=== PATIENT | female | born 1960 | race African-American/Black ===

== ENCOUNTER 2017-03-12 12:26 | Emergency (ER) | payer OTHER ==
[2017-03-12 13:09] LABS: Bilirubin Negative (Negative); Blood, Urine Negative (Negative); Glucose, Urine (Dipstick) Negative (Negative); Ketone, Urine Negative (Negative); Nitrite Negative (Negative); Protein, Urine (Dipstick) Negative (Neg-Trace); Urobilinogen 0.2 mg/dL (0.2-1.0)
[2017-03-12 13:20] LABS: Amphetamine Not Detected (NotDetected); Methadone Not Detected (NotDetected); Methamphetamine Not Detected (NotDetected)
[2017-03-12 14:08] LABS: Hematocrit 46.7 % (36.0-47.0); Mean Platelet Volume 7.1 fL (7.4-10.4); Red Blood Cell (RBC) Count 4.97 mill/uL (4.20-5.40)
[2017-03-12 14:21] LABS: ALT (SGPT) 12 U/L (8-55); AST (SGOT) 15 U/L (5-34); Alkaline Phosphatase 93 U/L (40-150); Anion Gap 13 mmol/L (10-20); BUN (Urea Nitrogen) 9 mg/dL (9.8-20.1); Bilirubin, Total 0.2 mg/dL (0.2-1.2); Calc. Creatinine Clearance 0 mL/min (70-130); Calcium 10.2 mg/dL (7.8-10.44); Carbon Dioxide 28 mmol/L (22-29); Chloride 107 mmol/L (98-107); Estimated GFR-MDRD 79; Globulin 3.8 g/dL (2.4-3.5)
[2017-03-12 14:30] LABS: Neutrophil 25 % (42-75); Reactive Lymphocytes 2 % (0-10)
--- NOTE | 2017-03-12 15:09 | RAD ---
PORTABLE AP CHEST: Date: 03-12-17 History: Dizziness, weakness. Comparison: 11-10-16 FINDINGS: The cardiac silhouette and pulmonary vasculature are within normal limits. Lungs remain clear. There are ankle screws again overlying the right humeral head. There has been no interval change from jesus or study. IMPRESSION: No acute cardiopulmonary process. POS: [facility]
--- NOTE | 2017-03-12 15:45 | CT ---
CT BRAIN NONCONTRAST: HISTORY: 56-year-old female with headache and generalized weakness. FINDINGS: There is no midline shift or any other mass effect. There is no evidence of acute intracranial hemo rrhage, large cortical infarct, obstructive hydrocephalus, or extraaxial fluid collection. The calv arium is intact. IMPRESSION: No acute intracranial findings. damien [] POS: [facility]
[2017-03-12 15:58] LABS: PTT 29.6 SEC (22.9-36.1); Prothrombin Time 13.3 SEC (12.0-14.7)
[2017-03-12 16:05] LABS: Troponin I Less than 0.010 ng/mL (< 0.028)
[2017-03-12] MEDS ORDERED: Acetaminophen 500 MG TAB ONE (18:06)
== END 2017-03-12 18:10 | disposition home or self-care (01) ==
LOC: ERS 12:26
DX: R53.1 Weakness (principal); M79.7 Fibromyalgia; E78.00 Pure hypercholesterolemia, unspecified; I10 Essential (primary) hypertension; F32.9 Major depressive disorder, single episode, unspecified; F17.210 Nicotine dependence, cigarettes, uncomplicated; Z79.82 Long term (current) use of aspirin; Z79.899 Other long term (current) drug therapy; Z86.73 Personal history of transient ischemic attack (TIA), and cerebral infarction without residual deficits
CPT/HCPCS: 36415; 70450; 71010; 80053; 80306; 81003; 82550; 82553; 84484; 85025; 85610; 85730; 93005

== ENCOUNTER 2017-04-15 07:48 | Outpatient (CLI) | payer OTHER ==
--- NOTE | 2017-04-15 11:25 | MRI ---
LUMBAR SPINE MRI WITHOUT IV CONTRAST: Date: 04/15/17 HISTORY: 56-year-old female with lumbar spondylosis with myelopathy, bilateral leg as well as bilateral neck p ain for several years. TECHNIQUE: Multiplanar, multisequence MRI examination of the lumbar spine is performed. FINDINGS: Conus medullaris region is unremarkable, terminating at L1. The L1-L2 disc demonstrates mild disc desiccation change and ligament and facet hypertrophic changes, but no canal or foraminal stenosis. At L2-L3, there is some primarily left posterolateral bulging of the disc without significant central canal or lateral recess stenosis, but with some mild to moderate left foraminal stenosis. At L3-L4, there is extensive disc bulging resulting in severe lateral recess and foraminal stenosis, as well as extensive facet arthrosis with fluid within both facet joints, worse on the right side. Se nereida bilateral foraminal stenosis. At L4-L5, there is severe disc bulging with moderate central canal and lateral recess stenosis, and b ilateral foraminal stenosis. At L5-S1, there are some disc desiccation changes with a small central annular fissure and mild bilat eral foraminal stenosis. IMPRESSION: Central canal, lateral recess, and foraminal stenosis most marked at L4-L5 and L3-L4. POS: [facility]
--- NOTE | 2017-04-15 11:47 | MRI ---
MRI CERVICAL SPINE WITHOUT IV CONTRAST: Date: 04/15/17 HISTORY: Bilateral leg and neck pain for 2 years. FINDINGS: Visualized base of the brain has a normal MRI appearance. Cervicomedullary junction has a normal MRI appearance. Normal signal intensity is demonstrated in the bone marrow. There are scattered degenerative changes seen within the cervical spine. C2-3 Level: There is small central disc protrusion narrowing the ventral subarachnoid space. Neural foramina are widely patent. C3-4 Level: There is loss of intervertebral disc height. There is mild broad based disc bulge with central disc p rotrusion. This narrows the ventral subarachnoid space. Neural foramina are patent. C4-5 Level: There is a mild broad based disc osteophyte complex with central disc protrusion. The central disc pr otrusion does contact the central aspect of the spinal cord resulting in slight flattening, but there is normal signal intensity in the spinal cord at this level. There is uncinate process hypertrophy a t this level. Each neural foramen appears patent. C5-6 Level: There is mild loss of the intervertebral disc height. There is a broad based disc osteophyte complex with tiny central disc protrusion. This does result in flattening of the anterior aspect of the spina l cord, but there is normal signal intensity in the spinal cord at this level. Neural foramina do carlos ear patent. C6-7 Level: There is a mild broad based disc osteophyte complex resulting in mild effacement of the ventral subar achnoid space. Neural foramina are patent. C7-T1 Level: There is mild broad based disc osteophyte complex, but there is no significant narrowing of the centr al spinal canal, and the neural foramina are patent. T1-2, T2-3, T3-4, and T4-5 Levels: There are mild broad based disc osteophyte complexes at these levels which narrows the ventral subara chnoid space. Axial imaging was not obtained through these levels, but there is at least mild right-s ided neural foraminal narrowing at the T2-3 level. IMPRESSION: Multilevel disc degenerative changes involving the cervical, as well as upper thoracic spine as descr ibed above. POS: [facility]
== END 2017-04-15 07:49 | disposition home or self-care (01) ==
LOC: MRI 07:48
PROVIDERS: ATTEND Neurological Surgery
DX: M47.16 Other spondylosis with myelopathy, lumbar region (principal); M47.12 Other spondylosis with myelopathy, cervical region; M47.14 Other spondylosis with myelopathy, thoracic region; M48.061 Spinal stenosis, lumbar region without neurogenic claudication
CPT/HCPCS: 72141; 72148

== ENCOUNTER 2017-06-05 17:16 | Emergency (ER) | payer OTHER ==
[2017-06-05 18:18] LABS: Hemoglobin 13.6 g/dL (12.0-16.0); Mean Corpuscular HGB CONC 33.3 g/dL (32.0-36.0); Mean Corpuscular Hemoglobin 31.5 pg (27.0-31.0); Mean Corpuscular Volume 94.6 fl (81.0-99.0); Mean Platelet Volume 7.1 fL (7.4-10.4); Platelet Count 275 thou/uL (130-400); RBC Distribution Width 13.2 % (11.5-14.5); Red Blood Cell (RBC) Count 4.32 mill/uL (4.20-5.40); White Blood Cell (WBC) Count 8.5 thou/uL (4.8-10.8)
[2017-06-05 18:19] LABS: ALT (SGPT) 9 U/L (8-55); AST (SGOT) 11 U/L (5-34); Albumin 3.8 g/dL (3.5-5.0); Alkaline Phosphatase 93 U/L (40-150); Anion Gap 12 mmol/L (10-20); BUN (Urea Nitrogen) 11 mg/dL (9.8-20.1); Bilirubin, Total Less than 0.2 mg/dL (0.2-1.2); CK (CPK) 136 U/L (29-168); Calc. Creatinine Clearance 0 mL/min (70-130); Calcium 9.3 mg/dL (7.8-10.44); Carbon Dioxide 22 mmol/L (22-29); Chloride 110 mmol/L (98-107); Estimated GFR-MDRD 79; Globulin 3.3 g/dL (2.4-3.5); Glucose 111 mg/dL (70-105); Lipase 28 U/L (8-78); Potassium 3.7 mmol/L (3.5-5.1); Protein, Total 7.1 g/dL (6.0-8.3); Sodium 140 mmol/L (136-145)
[2017-06-05 18:21] LABS: CKMB 1.1 ng/mL (0-6.6); Troponin I Less than 0.010 ng/mL (< 0.028)
--- NOTE | 2017-06-05 18:31 | RAD ---
PORTABLE CHEST ONE VIEW: Date: 06-05-17 Time: 5:49 p.m. History: Chest pain. FINDINGS: Comparison is made with exam of 03-12-17. The heart size is normal. No focal areas of consolidation, pneumothorax or pleural effusions are seen . IMPRESSION: No radiographic evidence of acute cardiopulmonary process. POS: [facility]
[2017-06-05 18:39] LABS: Eosinophils 1 % (0-10); Hemoglobin C Crystals MODERATE (None Seen); Lymphocytes 46 % (21-51); MDiff Complete? YES; Monocytes 6 % (0-10); Neutrophil 43 % (42-75); PLT Morphology Comment Appears Adequate; RBC Morphology Normal; Reactive Lymphocytes 3 % (0-10); Rouleaux Formation SLIGHT = 1-5 cells (100X) (None Seen)
[2017-06-05] MEDS ORDERED: Morphine 4 MG/ML Carpuject ONE ×2 (19:48→20:24)
[2017-06-05] MEDS ORDERED: Nitroglycerin 2% Ointment 1 INCH/1 GM Packet ONE (19:48)
[2017-06-05 21:39] LABS: Troponin I Less than 0.010 ng/mL (< 0.028)
[2017-06-05] MEDS ORDERED: Ketorolac Tromethamine 30 MG/ML VIAL ONE (21:56)
[2017-06-05] MEDS ORDERED: Diazepam 5 MG TAB ONE (21:57)
== END 2017-06-05 22:50 | disposition home or self-care (01) ==
LOC: ERS 17:16
DX: R07.89 Other chest pain (principal); I25.2 Old myocardial infarction; I10 Essential (primary) hypertension; E78.00 Pure hypercholesterolemia, unspecified; F32.9 Major depressive disorder, single episode, unspecified; F17.210 Nicotine dependence, cigarettes, uncomplicated; Z79.899 Other long term (current) drug therapy; Z86.73 Personal history of transient ischemic attack (TIA), and cerebral infarction without residual deficits; Z79.82 Long term (current) use of aspirin
CPT/HCPCS: 36415; 71045; 80053; 82550; 82553; 83690; 84484; 85025; 85379; 93005; 96374; 96375; 99406; J1885; J2270

== ENCOUNTER 2017-07-04 18:45 | Emergency (ER) | payer OTHER ==
[2017-07-04 19:34] LABS: #Basophils 0.1 thou/uL (0.0-0.2); #Eosinphils 0.4 thou/uL (0.0-0.7); #Lymphocytes 3.6 thou/uL (1.20-3.40); #Monocytes 0.3 thou/uL (0.11-0.59); #Neutrophils 3.6 thou/uL (1.40-6.50); %Basophils 0.9 % (0.0-1.0); %Eosinophils 5.3 % (0.0-10.0); %Monocytes 3.9 % (0.0-10.0); %Neutrophils 44.8 % (42.0-75.0); Hemoglobin 14.5 g/dL (12.0-16.0); Mean Corpuscular HGB CONC 33.5 g/dL (32.0-36.0); Mean Corpuscular Hemoglobin 31.5 pg (27.0-31.0); Mean Corpuscular Volume 94.1 fl (81.0-99.0); Mean Platelet Volume 7.4 fL (7.4-10.4); Platelet Count 262 thou/uL (130-400); RBC Distribution Width 12.7 % (11.5-14.5); White Blood Cell (WBC) Count 8.1 thou/uL (4.8-10.8)
[2017-07-04 19:55] LABS: ALT (SGPT) 11 U/L (8-55); AST (SGOT) 15 U/L (5-34); Albumin 3.7 g/dL (3.5-5.0); Alkaline Phosphatase 90 U/L (40-150); Anion Gap 13 mmol/L (10-20); BUN (Urea Nitrogen) 12 mg/dL (9.8-20.1); Bilirubin, Total 0.2 mg/dL (0.2-1.2); Calc. Creatinine Clearance 0 mL/min (70-130); Calcium 9.3 mg/dL (7.8-10.44); Carbon Dioxide 23 mmol/L (22-29); Chloride 110 mmol/L (98-107); Estimated GFR-MDRD 55; Globulin 3.3 g/dL (2.4-3.5); Glucose 116 mg/dL (70-105); Potassium 3.9 mmol/L (3.5-5.1); Sodium 142 mmol/L (136-145)
[2017-07-04 20:00] LABS: CKMB 0.7 ng/mL (0-6.6); Troponin I 0.015 ng/mL (< 0.028)
[2017-07-04 20:13] LABS: Bilirubin Negative (Negative); Blood, Urine Negative (Negative); Clarity CLEAR (Clear); Glucose, Urine (Dipstick) Negative (Negative); Leukocyte Negative (Negative); Nitrite Negative (Negative); Protein, Urine (Dipstick) Negative (Neg-Trace); Specific Gravity, Urine 1.017 (1.002-1.036)
--- NOTE | 2017-07-04 20:28 | CT ---
CT HEAD WITHOUT CONTRAST 07/04/17 Multiple axial tomograms obtained through the head without IV enhancement. HISTORY: Syncope. Ventricles have normal size and position. No mass, hemorrhage or infarct identified. Sinuses and mast oids are well aerated. IMPRESSION: No acute abnormality. POS: [facility]
[2017-07-04] MEDS ORDERED: Meclizine HCl 25 MG TAB ONE (22:34)
== END 2017-07-04 22:42 | disposition home or self-care (01) ==
LOC: ERS 18:45
DX: R55 Syncope and collapse (principal); R42 Dizziness and giddiness; I25.2 Old myocardial infarction; E78.00 Pure hypercholesterolemia, unspecified; I10 Essential (primary) hypertension; F41.9 Anxiety disorder, unspecified; F32.9 Major depressive disorder, single episode, unspecified; F17.210 Nicotine dependence, cigarettes, uncomplicated; Z79.82 Long term (current) use of aspirin; Z79.899 Other long term (current) drug therapy; Z71.6 Tobacco abuse counseling; Z86.73 Personal history of transient ischemic attack (TIA), and cerebral infarction without residual deficits
CPT/HCPCS: 36415; 70450; 80053; 81003; 82553; 84484; 85025; 93005; 96360; 99406

== ENCOUNTER 2017-12-24 20:04 | Emergency (ER) | payer OTHER ==
[~2017-12-24 20:04] MED LIST: ISOVUE-370 76%-LOCM 1 ML ONE
[2017-12-24 20:57] LABS: Bilirubin Negative (Negative); Blood, Urine Negative (Negative); Clarity CLEAR (Clear); Glucose, Urine (Dipstick) Negative (Negative); Leukocyte Negative (Negative); Nitrite Negative (Negative); Protein, Urine (Dipstick) Negative (Neg-Trace); Specific Gravity, Urine 1.013 (1.002-1.036); pH, Urine 6.5 (5.0-9.0)
[2017-12-24 21:18] LABS: ALT (SGPT) 10 U/L (8-55); AST (SGOT) 12 U/L (5-34); Alkaline Phosphatase 94 U/L (40-150); Anion Gap 13 mmol/L (10-20); BUN (Urea Nitrogen) 14 mg/dL (9.8-20.1); Bilirubin, Total 0.2 mg/dL (0.2-1.2); Calc. Creatinine Clearance 0 mL/min (70-130); Calcium 9.4 mg/dL (7.8-10.44); Carbon Dioxide 24 mmol/L (22-29); Chloride 105 mmol/L (98-107); Estimated GFR-MDRD 80; Globulin 3.4 g/dL (2.4-3.5); Glucose 97 mg/dL (70-105); Lipase 33 U/L (8-78); Potassium 3.2 mmol/L (3.5-5.1); Protein, Total 7.4 g/dL (6.0-8.3); Sodium 139 mmol/L (136-145)
[2017-12-24 21:27] LABS: Mean Corpuscular HGB CONC 34.6 g/dL (32.0-36.0); Mean Corpuscular Hemoglobin 31.3 pg (27.0-31.0); Mean Corpuscular Volume 90.6 fL (78.0-98.0); Mean Platelet Volume 7.4 fL (7.4-10.4); Platelet Count 265 thou/uL (130-400); RBC Distribution Width 12.7 % (11.5-14.5); Red Blood Cell (RBC) Count 4.77 mill/uL (4.20-5.40); White Blood Cell (WBC) Count 6.6 thou/uL (4.8-10.8)
[2017-12-24 21:35] LABS: Lymphocytes 49 % (21-51); MDiff Complete? YES; Monocytes 3 % (0-10); Neutrophil 48 % (42-75); PLT Morphology Comment Appears Adequate; RBC Morphology Normal
--- NOTE | 2017-12-24 22:18 | CT ---
CT ABDOMEN AND PELVIS WITH IV CONTRAST: 12/24/17 Abdominal pain. FINDINGS: Comparison made with exam of 08/29/27. Nonspecific increased markings in the visualized lower lung zones are again seen. The small low densi ty lesions in the dome of the right lobe of the liver is unchanged. The gallbladder is contracted. No calcified gallstones are seen. The common bile duct stable measuring up to 9 mm with normal caliber distally in the pancreas. No intrahepatic biliary ductal dilatation is seen. The liver, spleen, pancreas, adrenal glands, and right kidney are normal. A tiny cyst is noted in the left kidney. No free air, free fluid or lymphadenopathy is seen in the abdomen or pelvis. The uterus is present. A normal appearing appendix is redemonstrated. There are degenerative changes in the spine. There are vascular calcifications without evidence of aneurysmal dilatation of the abdominal aorta. IMPRESSION: Stable exam. No acute process. POS: [facility]
[2017-12-24] MEDS ORDERED: Ondansetron HCl/PF 4 MG/2 ML Vial ONE (22:23)
[2017-12-24 22:38] LABS: Pregnancy Test - Urine (BHCG) Negative (Negative); Pregu Control Background? CLEAR/WHITE (CLR/WHITE); Pregu Control Bar Appear? YES (CONTROL BAR); Specific Gravity 1.013 (1.002-1.036)
== END 2017-12-24 23:35 | disposition home or self-care (01) ==
LOC: ERS 20:04
DX: R10.9 Unspecified abdominal pain (principal); F41.9 Anxiety disorder, unspecified; F31.9 Bipolar disorder, unspecified; F17.210 Nicotine dependence, cigarettes, uncomplicated; I10 Essential (primary) hypertension; M06.9 Rheumatoid arthritis, unspecified; E78.5 Hyperlipidemia, unspecified; Z86.73 Personal history of transient ischemic attack (TIA), and cerebral infarction without residual deficits; Z79.899 Other long term (current) drug therapy; Z79.891 Long term (current) use of opiate analgesic; Z79.82 Long term (current) use of aspirin
CPT/HCPCS: 74177; 80053; 81003; 81025; 83690; 85025; 96374; 96375; J2270; J2405

== ENCOUNTER 2018-03-27 12:11 | Emergency (ER) | payer OTHER ==
[2018-03-27] MEDS ORDERED: Ketorolac Tromethamine 30 MG/ML VIAL ONE (14:01)
[2018-03-27] MEDS ORDERED: traMADol HCl 50 MG TAB ONE (14:02)
--- NOTE | 2018-03-27 14:12 | RAD ---
LUMBOSACRAL SPINE: Date: 03/27/18 COMPARISON: None. HISTORY: Low back pain that has been worse since Saturday. FINDINGS: Three views lumbosacral spine show normal height and alignment of the vertebral bodies and interverte bral disc without fracture. Posterior facet arthrosis is seen in the lower lumbosacral spine. Vascula r calcifications are seen in the aorta. IMPRESSION: Degenerative changes of the lumbar spine without acute osseous abnormality. POS: [facility]
== END 2018-03-27 14:16 | disposition home or self-care (01) ==
LOC: ERS 12:11
DX: M54.5 Low back pain (principal); E78.5 Hyperlipidemia, unspecified; I10 Essential (primary) hypertension; Z86.73 Personal history of transient ischemic attack (TIA), and cerebral infarction without residual deficits; F41.9 Anxiety disorder, unspecified; F31.9 Bipolar disorder, unspecified; F17.210 Nicotine dependence, cigarettes, uncomplicated; Z79.899 Other long term (current) drug therapy; Z79.82 Long term (current) use of aspirin
CPT/HCPCS: 72100; 96372; J1885

== ENCOUNTER 2018-04-03 12:49 | Outpatient (CLI) | payer OTHER ==
--- NOTE | 2018-04-03 15:06 | MRI ---
LUMBAR SPINE MRI WITHOUT IV CONTRAST: Date: 04/03/18 HISTORY: 57-year-old female with history of lumbar disc degeneration, M51.36, bilateral leg pain and weakness for 1 week. FINDINGS: There is a very tiny T2 hyperintensity in the posterior aspect of the left kidney, statistically a ti ny cyst. Conus medullaris region is unremarkable, terminating at L1-L2. The L1-L2, L2-L3, and L3-L4 discs demonstrate no significant central canal stenosis. Mild bilateral l ateral recess stenosis and bilateral foraminal stenosis at L2-3 level. At L3-L4, there is extensive diffuse disc bulging with ligament and facet hypertrophic changes, with mild central canal and moderate bilateral recess stenosis, and moderate to severe bilateral foraminal stenosis, associated with a central annular fissure. At L4-L5, there is a very large central extruded disc herniation with severe central canal and latera l recess stenosis, and bilateral foraminal stenosis. The amount of stenosis appears to be somewhat mo re marked than on 04/15/17 with increase in size of the posterior disc focal protrusion with more cau patsy extension than on the prior study. At L5-S1, there is some generalized disc bulging with ligament and facet hypertrophic changes, with m ild thinning of the lateral recesses and moderate left and mild right foraminal stenosis. Very mild T ype I end plate changes at L4-L5. IMPRESSION: Multilevel variable severity canal, lateral recess, and foraminal stenosis, most marked at L5-S1, wit h some progressive stenosis and disc protrusion, enlarged when compared to the prior study. POS: [facility]
== END 2018-04-03 12:50 | disposition home or self-care (01) ==
LOC: TBSIIMAG 12:49
PROVIDERS: ATTEND Neurological Surgery
DX: M51.36 Other intervertebral disc degeneration, lumbar region (principal); M51.26 Other intervertebral disc displacement, lumbar region; M48.07 Spinal stenosis, lumbosacral region; M99.83 Other biomechanical lesions of lumbar region
CPT/HCPCS: 72148

== ENCOUNTER 2018-04-22 10:30 | Inpatient (IN) | payer OTHER ==
[2018-04-22 11:14] VITALS: BMI 28.3
[2018-04-28] MEDS ORDERED: Sodium Chloride 0.9% 10 ML ONE (06:25)
[2018-04-28] MEDS ORDERED: Midazolam HCl 2 mg/2 ml Vial ONE (06:47)
[2018-04-28] MEDS ORDERED: Fentanyl 250 MCG/5 ML VIAL ONE (06:47)
[2018-04-28] MEDS ORDERED: Levofloxacin 500 mg/D5W 100 ml Premix Bag ONE (06:56)
[2018-04-28] MEDS ORDERED: Clindamycin/D5W 900 mg/50 ml Premix Bag ONE (06:56)
[2018-04-28] MEDS ORDERED: Ketorolac Tromethamine 30 MG/ML VIAL ONE (09:18)
[2018-04-28] MEDS ORDERED: Fentanyl 100 MCG/2 ML VIAL ONE ×3 (09:19→11:26)
[2018-04-28] MEDS ORDERED: Morphine 2 MG/ML SYRINGE ONE ×4 (12:15→13:51)
[2018-04-28] MEDS ORDERED: Lidocaine 1% PF 5 ML VIAL ONE (15:02)
[2018-04-28] MEDS ORDERED: Glycopyrrolate 0.2 MG/ML 5 ML SYRINGE ONE (15:02)
[2018-04-28] MEDS ORDERED: ePHEDrine/0.9% NaCl/PF SYRINGE 50 mg/10 ml ONE (15:02)
[2018-04-28] MEDS ORDERED: PHENYLEPHRINE-NS 100 MCG/ML 10 ML SYRINGE ONE (15:02)
[2018-04-28] MEDS ORDERED: PROPOFOL 200 MG/20 ML VIAL ONE (15:02)
[2018-04-28] MEDS ORDERED: Ondansetron PF 4 MG/2 ML Vial ONE (15:02)
[2018-04-28] MEDS ORDERED: diphenhydrAMINE 50 MG/ML VIAL IVP PRN (15:18)
[2018-04-28] MEDS ORDERED: diphenhydrAMINE 25 MG CAP PO PRN (15:18)
[2018-04-28] MEDS ORDERED: Promethazine HCl 25 MG/ML VIAL IM PRN (15:18)
[2018-04-28] MEDS ORDERED: Morphine 4 MG/ML VIAL SLOW IVP PRN (15:18)
[2018-04-28] MEDS ORDERED: Milk Of Magnesia 30 ML UDCUP PO PRN (15:18)
[2018-04-28] MEDS ORDERED: Promethazine 25 MG TAB PO PRN (15:18)
[2018-04-28] MEDS ORDERED: Ondansetron PF 4 MG/2 ML Vial IM PRN (15:18)
[2018-04-28] MEDS ORDERED: Mag-Al 1200 mg/1200 mg/30 ML UDCUP PO PRN (15:18)
[2018-04-28] MEDS ORDERED: traMADol HCl 50 MG TAB PO PRN ×2 (15:18)
[2018-04-28] MEDS: Sodium Chloride 0.9% 1,000 ML IV SCH ×2 (15:47→23:09)
[2018-04-28] MEDS: HYDROcodone/Acetaminophen 10/325 mg Tablet PO PRN ×2 (15:59→22:08)
[2018-04-28] MEDS: Clindamycin/D5W 900 MG in Premix Bag 1 BAG IVPB SCH ×2 (16:00→23:10)
[2018-04-28] MEDS: Atorvastatin Calcium 40 MG TAB PO SCH (20:11)
[2018-04-28] MEDS: Gabapentin 300 MG CAP PO SCH (20:11)
[2018-04-29] MEDS ORDERED: Sodium Chloride 0.9% 1,000 ML IV SCH (06:15)
[2018-04-29] MEDS: HYDROcodone/Acetaminophen 10/325 mg Tablet PO PRN ×2 (08:39→16:16)
[2018-04-29] MEDS: Gabapentin 300 MG CAP PO SCH ×3 (08:40→19:45)
[2018-04-29] MEDS ORDERED: Lisinopril 5 MG TAB PO SCH (09:00)
[2018-04-29] MEDS ORDERED: Furosemide 20 MG TAB PO SCH (09:00)
[2018-04-29] MEDS: tiZANidine HCl 4 MG TAB PO PRN ×2 (12:47→18:58)
[2018-04-29] MEDS: Sodium Chloride 0.9% 1,000 ML IV SCH (17:30)
[2018-04-29] MEDS: Atorvastatin Calcium 40 MG TAB PO SCH (19:45)
[2018-04-30] MEDS: HYDROcodone/Acetaminophen 10/325 mg Tablet PO PRN ×2 (03:36→07:19)
--- NOTE | 2018-04-30 05:20 | DIS ---
DATE OF ADMISSION: 04/28/2018 DATE OF DISCHARGE: 04/29/2018 HOSPITAL COURSE: The patient is a 57-year-old -[place] female, status post L3-L5 diskectomy and fusion for lumbar degenerative disk disease/lumbar spondylosis. Following the surgery, she was transitioned to the Med Surg Department, where her pain was well controlled with p.o. medications. She was tolerating regular diet, and voiding appropriately. She did have slight drop in her blood pressures to systolic of 90, however, this improved with switching her pain medications to tramadol. She was also treated with 1 L of normal saline bolus. She has otherwise been ambulatory in the department without any difficulty. I have visited the patient this morning at the bedside. She is awake and alert, in no acute distress. She is in 5/5 strength throughout. No focal motor weakness or reflex asymmetry. Her dressing is dry. We will plan to dismiss the patient to home. I have provided her with scripts for Corona, tramadol, clindamycin, and Zanaflex. We will plan to follow up with the patient in 2 weeks for recheck and x-rays. The patient has been provided discharge instructions. Job ID: [id number]
[2018-04-30] MEDS: Sodium Chloride 0.9% 1,000 ML IV SCH (07:36)
[2018-04-30 07:37] VITALS: BP 114/69; TEMP 98.8
--- NOTE | 2018-05-01 14:29 | OP ---
DATE OF PROCEDURE: 04/28/2018 FRET SAW OPERATOR: Hudson Wheeler PROCEDURE PERFORMED: L3-L4 and L4-L5 decompressive laminectomy, left L3-L4 and L4-L5 laminectomy, facetectomy, and foraminotomy, interbody arthrodesis and , local morselized autograft, demineralized bone matrix, posterolateral arthrodesis, pedicle screw instrumentation, L3-L4 and L4-L5. DESCRIPTION OF PROCEDURE: The patient was brought to the operating room and intubated. She was rolled in the prone position on gel-filled chest roll. Incision was made exposing L3-L5 and the level was confirmed by x-ray. We performed complete L5, complete L4, and L3 laminectomies and complete decompression of the neural elements. The pinhole leak in the dura was identified at the L4 level, which was repaired with the single 4-0 Prolene suture. This was later reinforced with the DuraSeal fibrin sealant. Left L4-L5 and left L3-L4 facetectomy and foraminotomy were performed and completed discectomies at each level. The discs themselves were debrided and removed and bony end plates decorticated for first arthrodesis at L3-L4 and L4-L5. Appropriate sized intravertebral biomechanical PEEK devices were brought into the field, filled with demineralized bone matrix, local morselized autograft and then placed securely at L3-L4 and L4-L5. Cortical screws were then placed at left L3, left L4, and left L5 using lateral fluoroscopic guidance. Rods were secured with pins and screws connected by nuts which after compression was applied were finally tightened. The wound was then extensively irrigated and maximum hemostasis was secured. Combination of demineralized bone matrix and local morselized autograft arthrodesis. Vancomycin power was applied and the wound was then closed in anatomic layers. Job ID: [id number]
== END 2018-04-30 07:50 | disposition home or self-care (01) | DRG 460 ==
LOC: SURG A 04-28 05:53
PROVIDERS: ADMIT Neurological Surgery; ATTEND Neurological Surgery
PROC: 0ST20ZZ Resection of Lumbar Vertebral Disc, Open Approach (ICD-10-PCS; principal; 2018-04-28)
PROC: 0SG10AJ Fusion of 2 or more Lumbar Vertebral Joints with Interbody Fusion Device, Posterior Approach, Anterior Column, Open Approach (ICD-10-PCS; 2018-04-28)
PROC: 01NB0ZZ Release Lumbar Nerve, Open Approach (ICD-10-PCS; 2018-04-28)
DX: M51.36 Other intervertebral disc degeneration, lumbar region (principal); M47.896 Other spondylosis, lumbar region
CPT/HCPCS: 76001; 90471; 90686; C1713; C1768; G0008; G8978-GP-CM; G8979-GP-CK; J1200; J1885; J1956; J2001; J2250; J2270; J2405; J2704; J3010; J3370; J3490

== ENCOUNTER 2018-04-22 10:48 | Outpatient (CLI) | payer OTHER ==
[2018-04-22 12:28] LABS: #Basophils 0.1 thou/uL (0.0-0.2); #Eosinphils 0.2 thou/uL (0.0-0.7); #Lymphocytes 3.1 thou/uL (1.20-3.40); #Monocytes 0.3 thou/uL (0.11-0.59); #Neutrophils 3.3 thou/uL (1.40-6.50); %Basophils 0.8 % (0.0-1.0); %Eosinophils 3.4 % (0.0-10.0); %Lymphocytes 44.6 % (21.0-51.0); %Monocytes 3.8 % (0.0-10.0); %Neutrophils 47.5 % (42.0-75.0); Hemoglobin 14.7 g/dL (12.0-16.0); Mean Corpuscular HGB CONC 34.3 g/dL (32.0-36.0); Mean Corpuscular Hemoglobin 31.6 pg (27.0-31.0); Mean Platelet Volume 7.4 fL (7.4-10.4); Platelet Count 284 thou/uL (130-400); RBC Distribution Width 12.7 % (11.5-14.5); Red Blood Cell (RBC) Count 4.66 mill/uL (4.20-5.40); White Blood Cell (WBC) Count 6.9 thou/uL (4.8-10.8)
[2018-04-22 12:50] LABS: Anion Gap 13 mmol/L (10-20); BUN (Urea Nitrogen) 10 mg/dL (9.8-20.1); Calc. Creatinine Clearance 0 mL/min (70-130); Carbon Dioxide 27 mmol/L (22-29); Chloride 107 mmol/L (98-107); Estimated GFR-MDRD 83; Glucose 90 mg/dL (70-105); Potassium 3.8 mmol/L (3.5-5.1); Sodium 143 mmol/L (136-145)
== END 2018-04-22 10:49 | disposition home or self-care (01) ==
LOC: LABBT 10:48
PROVIDERS: ATTEND Neurological Surgery
DX: Z01.818 Encounter for other preprocedural examination (principal); M51.36 Other intervertebral disc degeneration, lumbar region
CPT/HCPCS: 80048; 85025; 93005; 93010

== ENCOUNTER 2018-05-11 20:59 | Emergency (ER) | payer OTHER ==
[2018-05-11] MEDS ORDERED: Lorazepam 2 MG/ML VIAL ONE (22:40)
[2018-05-11] MEDS ORDERED: Fentanyl 100 MCG/2 ML VIAL ONE (22:40)
[2018-05-11 23:10] LABS: #Basophils 0.1 thou/uL (0.0-0.2); #Eosinphils 0.2 thou/uL (0.0-0.7); #Monocytes 0.6 thou/uL (0.11-0.59); #Neutrophils 5.7 thou/uL (1.40-6.50); %Basophils 0.8 % (0.0-1.0); %Eosinophils 2.2 % (0.0-10.0); %Lymphocytes 31.2 % (21.0-51.0); %Neutrophils 59.8 % (42.0-75.0); Anion Gap 15 mmol/L (10-20); BUN (Urea Nitrogen) 11 mg/dL (9.8-20.1); Calc. Creatinine Clearance 0 mL/min (70-130); Calcium 9.7 mg/dL (7.8-10.44); Carbon Dioxide 23 mmol/L (22-29); Chloride 104 mmol/L (98-107); Estimated GFR-MDRD 86; Glucose 111 mg/dL (70-105); Hemoglobin 12.3 g/dL (12.0-16.0); Mean Corpuscular HGB CONC 36.3 g/dL (32.0-36.0); Mean Corpuscular Hemoglobin 33.4 pg (27.0-31.0); Mean Corpuscular Volume 92.1 fL (78.0-98.0); Mean Platelet Volume 6.5 fL (7.4-10.4); Platelet Count 508 thou/uL (130-400); Red Blood Cell (RBC) Count 3.66 mill/uL (4.20-5.40); Sodium 138 mmol/L (136-145); White Blood Cell (WBC) Count 9.5 thou/uL (4.8-10.8)
== END 2018-05-12 00:06 | disposition home or self-care (01) ==
LOC: ERS 20:59
DX: G89.18 Other acute postprocedural pain (principal); M54.9 Dorsalgia, unspecified; E78.5 Hyperlipidemia, unspecified; I10 Essential (primary) hypertension; M06.9 Rheumatoid arthritis, unspecified; Z86.73 Personal history of transient ischemic attack (TIA), and cerebral infarction without residual deficits; F41.9 Anxiety disorder, unspecified; F17.210 Nicotine dependence, cigarettes, uncomplicated
CPT/HCPCS: 36415; 80048; 85025; 96374; 96375; J2060; J3010

== ENCOUNTER 2018-05-13 16:03 | Outpatient (CLI) | payer OTHER ==
--- NOTE | 2018-05-13 17:28 | RAD ---
LUMBAR SPINE TWO VIEWS: HISTORY: M48.062, lumbar stenosis with neurogenic claudication. COMPARISON: Lumbar spine radiograph from 11/24/2017. FINDINGS: Left-sided unilateral posterior spinal fusion hardware is present at L3-L5. No hardware fracture. D iskectomy changes without hardware migration. Laminectomy changes at L3-L5. No acute superimposed fracture or malalignment. IMPRESSION: Satisfactory postoperative appearance. POS: [facility]
== END 2018-05-13 16:04 | disposition home or self-care (01) ==
LOC: TBSIIMAG 16:03
PROVIDERS: ATTEND Neurological Surgery
DX: M48.062 Spinal stenosis, lumbar region with neurogenic claudication (principal); Z98.1 Arthrodesis status
CPT/HCPCS: 72100

== ENCOUNTER 2018-06-24 14:46 | Outpatient (CLI) | payer OTHER ==
--- NOTE | 2018-06-24 16:21 | RAD ---
LUMBAR SPINE TWO VIEWS: History: Disc degeneration lumbar region. Back pain. Recent surgery 05-29-18. FINDINGS: Post-operative changes are noted. Pedicle screws are seen on the left at L3, L4, and L5 with posterio r laminectomy changes. Interbody disc implants at L3-4 and L4-5 appear adequately positioned. Lumbar vertebrae maintain normal height and alignment. There is mild loss of disc space at L5-S1. IMPRESSION: Post-operative change of the lumbar spine as described. Vertebral bodies maintain normal height and a lignment. Hardware appears adequately positioned. POS: [facility]
== END 2018-06-24 14:47 | disposition home or self-care (01) ==
LOC: TBSIIMAG 14:46
PROVIDERS: ATTEND Neurological Surgery
DX: M51.36 Other intervertebral disc degeneration, lumbar region (principal); Z98.890 Other specified postprocedural states
CPT/HCPCS: 72100

== ENCOUNTER 2018-07-15 13:53 | Outpatient (CLI) | payer OTHER ==
--- NOTE | 2018-07-15 15:29 | RAD ---
LUMBAR SPINE TWO VIEWS: HISTORY: M54.16, lumbar radiculopathy. COMPARISON: 06/24/2018 FINDINGS: Similar appearance of the left unilateral posterior spinal fusion hardware at L3-L5 with diskectomy c ages. No migration of the diskectomy changes. There is a linear lucency spinous process of L2, which may reflect a fracture. Moderate vascular calcifications of the aorta. Mild narrowing of the L5-S1 disk spaces. IMPRESSION: 1. Linear lucency of the spinous process of L2 may reflect a fracture. 2. Intact surgical hardware. POS: [facility]
== END 2018-07-15 13:54 | disposition home or self-care (01) ==
LOC: TBSIIMAG 13:53
PROVIDERS: ATTEND Neurological Surgery
DX: M54.16 Radiculopathy, lumbar region (principal); Z98.890 Other specified postprocedural states
CPT/HCPCS: 72100

== ENCOUNTER 2018-08-04 06:48 | Day surgery (SDC) | payer OTHER ==
[2018-08-01 14:05] VITALS: BMI 27.4
[2018-08-04 07:59] VITALS: BP 136/80; TEMP 97.8
--- NOTE | 2018-08-04 10:46 | RAD ---
LUMBAR SPINE MYELOGRAM: INDICATION: Low back pain and lower extremity pain. History of prior lumbar surgery. PROCEDURE: Informed consent was obtained, and the patient was transferred to the interventional suite. Mica Builder im aging was performed prior to the procedure. FLUOROSCOPY DATA: Intermittent fluoroscopy for 0.1 minutes with 7.5 Gy per m2 using a 22 gauge needle. TECHNIQUE: The patient was then placed into a prone position, and the low back was prepped and draped in the sta ndard sterile fashion. Topical anesthesia was achieved with 1% lidocaine buffered with sodium bicarb rc. Using a 22 gauge needle, uneventful access was obtained into the thecal sac from a posterior right paramedian approach at the L3-L4 level. Clear color CSF was noted at the needle hub. Subseque ntly, Isovue-M 200 9 mL was instilled into the thecal sac. This was performed under real-time fluoro scopy with appropriate contrast opacification of the thecal sac demonstrated during the exam with yoan quate contrast opacification achieved. The needle was removed. The patient tolerated the procedure well without evidence of complication. The patient was then transferred to CT department to undergo further imaging. Please reference separate CT myelogram for additional details. IMPRESSION: Technically successful lumbar spine myelogram. POS: [facility]
--- NOTE | 2018-08-04 11:35 | CT ---
CT LUMBAR SPINE WITH CONTRAST CT LUMBAR MYELOGRAM: Date: 08/04/18 INDICATION: History of prior low back surgery with persistent low back and lower extremity pain, lumbar stenosis with neural claudication. FINDINGS: There is left-sided multilevel posterior fusion spanning L3 through L5 with left pedicle screws at L3 , L4, and L5, and a vertical interconnecting palmira. Intradiscal space device is present at L3-4 and L4- 5 levels. There is end plate sclerosis of inferior L3, superior and inferior L4, and superior L5. The re is no significant perihardware lucency visualized. L5-S1: Posterior decompression is seen without significant central canal stenosis. There is mild rachel ateral neural foraminal stenosis due to disc osteophyte process and bilateral facet hypertrophy. L4-5: There is a broad based disc osteophyte with effacement of ventral thecal sac. Bilateral facet hypertrophy is present, and there is soft tissue density indicating component of epidural fibrosis an d/or spinal ligaments at the posterior and lateral aspect of the thecal sac. Overall, there is mild n arrowing of the central canal. L3-4: Disc osteophyte complex effaces intrathecal sac. There is bilateral facet joint hypertrophy pr esent. There is streak artifact from hardware limiting visualization. Mild central canal stenosis is present. There is mild to moderate right and mild left neural foraminal narrowing. L2-3: There is a broad based disc bulge with slight effacement of the ventral thecal sac. No high gr yoan central canal or foraminal stenosis. L1-2: There is no significant central canal or neural foraminal stenosis. Evaluation of the visualized retroperitoneum reveals vascular disease. Conus medullary is normal in morphology, terminating at the L1 level. IMPRESSION: Multilevel degenerative changes and postoperative change of the lumbar spine as outlined above. POS: [facility]
[2018-08-04] MEDS ORDERED: Iopamidol-M 300 61% 15 ML VIAL ONE (16:36)
== END 2018-08-04 10:00 | disposition home or self-care (01) ==
LOC: RAD 06:48
PROVIDERS: ATTEND Neurological Surgery
PROC: B01B1ZZ Fluoroscopy of Spinal Cord using Low Osmolar Contrast (ICD-10-PCS; principal; 2018-08-04)
DX: M48.062 Spinal stenosis, lumbar region with neurogenic claudication (principal); I25.2 Old myocardial infarction; F17.200 Nicotine dependence, unspecified, uncomplicated; G89.29 Other chronic pain; M54.9 Dorsalgia, unspecified; M79.7 Fibromyalgia; I10 Essential (primary) hypertension; Z86.73 Personal history of transient ischemic attack (TIA), and cerebral infarction without residual deficits; Z79.82 Long term (current) use of aspirin; Z79.899 Other long term (current) drug therapy; Z88.0 Allergy status to penicillin; Z98.890 Other specified postprocedural states
CPT/HCPCS: 62304; 72132; Q9967

== ENCOUNTER 2019-01-02 18:56 | Emergency (ER) | payer OTHER ==
[2019-01-02 19:46] LABS: Bilirubin Negative (Negative); Blood, Urine Negative (Negative); Clarity Clear (Clear); Glucose, Urine (Dipstick) Normal (Negative); Leukocyte Negative Leu/uL (Negative); Nitrite Negative (Negative); Protein, Urine (Dipstick) Negative (Neg-Trace); Urobilinogen Normal mg/dL (Less than 2)
[2019-01-02] MEDS ORDERED: Morphine 4 MG/ML VIAL ONE ×2 (19:52→21:56)
[2019-01-02] MEDS ORDERED: Ondansetron PF 4 MG/2 ML Vial ONE (20:03)
[2019-01-02 20:08] LABS: #Eosinphils 0.5 thou/uL (0.0-0.7); #Lymphocytes 3.2 thou/uL (1.20-3.40); #Monocytes 0.4 thou/uL (0.11-0.59); #Neutrophils 2.5 thou/uL (1.40-6.50); %Basophils 0.6 % (0.0-1.0); %Eosinophils 7.3 % (0.0-10.0); %Lymphocytes 48.5 % (21.0-51.0); %Monocytes 5.8 % (0.0-10.0); %Neutrophils 37.9 % (42.0-75.0); Hemoglobin 14.5 g/dL (12.0-16.0); Mean Corpuscular Hemoglobin 31.7 pg (27.0-31.0); Mean Corpuscular Volume 93.2 fL (78.0-98.0); Mean Platelet Volume 7.1 fL (7.4-10.4); Platelet Count 262 thou/uL (130-400); RBC Distribution Width 13.1 % (11.5-14.5); Red Blood Cell (RBC) Count 4.58 mill/uL (4.20-5.40); White Blood Cell (WBC) Count 6.7 thou/uL (4.8-10.8)
[2019-01-02 20:27] LABS: ALT (SGPT) 9 U/L (8-55); AST (SGOT) 11 U/L (5-34); Albumin 4.1 g/dL (3.5-5.0); Alkaline Phosphatase 99 U/L (40-150); Anion Gap 12 mmol/L (10-20); BUN (Urea Nitrogen) 8 mg/dL (9.8-20.1); Bilirubin, Total 0.2 mg/dL (0.2-1.2); Calc. Creatinine Clearance 0 mL/min (70-130); Calcium 9.7 mg/dL (7.8-10.44); Carbon Dioxide 25 mmol/L (22-29); Chloride 106 mmol/L (98-107); Estimated GFR-MDRD 89; Globulin 3.5 g/dL (2.4-3.5); Glucose 90 mg/dL (70-105); Lipase 31 U/L (8-78); Potassium 3.3 mmol/L (3.5-5.1); Protein, Total 7.6 g/dL (6.0-8.3); Sodium 140 mmol/L (136-145)
--- NOTE | 2019-01-02 20:32 | CT ---
CT Abdomen Pelvis W Con History: Left upper quadrant pain. Comparison: CT December 24, 2017 Findings: Mild atelectasis in the lung bases. No pericardial effusion. Normal proximal small bowel rotation. No aneurysmal dilatation of the aorta. No dilated loops of large or small bowel. The appendix is visualized and is normal. No retroperitoneal periaortic adenopathy. The spleen gallbladder and adrenal glands are unremarkable. Subtle hypodensity of the hepatic dome is similar. Similar to the prior examination is mild prominence of the right renal collecting system and ureter w ithout obstructing stone. No free intraperitoneal gas or fluid. Posterior spinal fusion hardware and discectomy change L3-L5 wi th laminectomies. Impression: No acute inflammatory process within the abdomen or pelvis.
== END 2019-01-02 21:56 | disposition home or self-care (01) ==
LOC: ERS 18:56
DX: R10.12 Left upper quadrant pain (principal); E78.5 Hyperlipidemia, unspecified; I10 Essential (primary) hypertension; M79.7 Fibromyalgia; M06.9 Rheumatoid arthritis, unspecified; Z86.73 Personal history of transient ischemic attack (TIA), and cerebral infarction without residual deficits; F17.210 Nicotine dependence, cigarettes, uncomplicated; F41.9 Anxiety disorder, unspecified; F32.9 Major depressive disorder, single episode, unspecified; Z79.899 Other long term (current) drug therapy; Z79.82 Long term (current) use of aspirin
CPT/HCPCS: 74177; 80053; 81003; 83690; 85025; 94760; 96361; 96374; 96375; 96376; J2270; J2405

== ENCOUNTER 2019-04-13 17:44 | Observation (INO) | payer OTHER ==
[~2019-04-13 17:44] MED LIST changes: -ISOVUE-370 76%-LOCM 1 ML ONE; +Iopamidol-370 76% 500 ML 1 ML ONE
--- NOTE | 2019-04-13 18:14 | RAD ---
RADIOGRAPH CHEST 1 VIEW: DATE: 04/13/2019 HISTORY: 58-year-old female with chest pain FINDINGS: There are no airspace densities, pulmonary edema, pneumothorax, or cardiomegaly. The lateral costophr enic angles are sharp. IMPRESSION: No acute cardiopulmonary findings.
[2019-04-13] MEDS ORDERED: Aspirin Chewable 81 MG TAB ONE (18:17)
[2019-04-13] MEDS ORDERED: Nitroglycerin 2% Ointment 1 INCH/1 GM Packet ONE (18:17)
[2019-04-13 19:07] LABS: ALT (SGPT) 11 U/L (8-55); AST (SGOT) 12 U/L (5-34); Albumin 3.9 g/dL (3.5-5.0); Alkaline Phosphatase 89 U/L (40-110); Anion Gap 11 mmol/L (10-20); BUN (Urea Nitrogen) 14 mg/dL (9.8-20.1); Bilirubin, Total Less than 0.2 mg/dL (0.2-1.2); Calc. Creatinine Clearance 0 mL/min (70-130); Calcium 9.2 mg/dL (7.8-10.44); Carbon Dioxide 21 mmol/L (22-29); Chloride 111 mmol/L (98-107); Estimated GFR-MDRD 74; Globulin 3.1 g/dL (2.4-3.5); Glucose 96 mg/dL (70-105); Lipase 25 U/L (8-78); Potassium 3.4 mmol/L (3.5-5.1); Sodium 140 mmol/L (136-145)
--- NOTE | 2019-04-13 19:32 | CT ---
EXAM: CT angiogram of the chest including 3-D rendering: HISTORY: Chest pain left upper chest COMPARISON: None FINDINGS: There is adequate opacification of the pulmonary arteries. No evidence for aortic aneurysm or dissection. No convincing CT evidence for acute pulmonary embolism. There are some mild slightly patchy groundglass opacity changes in the mid and lower aspects of both lungs possibly representing vascular congestion or mild edema. No evidence for mediastinal mass or adenopathy. No evidence for pleural or pericardial effusion. The visualized upper abdomen is unremarkable. IMPRESSION: No convincing CT evidence for acute pulmonary embolism. Nonspecific minimal groundglass opacity changes in the mid and lower lung zones.
[2019-04-13 19:39] LABS: Hemoglobin 13.1 g/dL (12.0-16.0); Mean Corpuscular HGB CONC 33.8 g/dL (32.0-36.0); Mean Corpuscular Hemoglobin 31.3 pg (27.0-31.0); Mean Corpuscular Volume 92.5 fL (78.0-98.0); Mean Platelet Volume 7.1 fL (7.4-10.4); Platelet Count 258 thou/uL (130-400); RBC Distribution Width 12.9 % (11.5-14.5); Red Blood Cell (RBC) Count 4.19 mill/uL (4.20-5.40); White Blood Cell (WBC) Count 8.4 thou/uL (4.8-10.8)
[2019-04-13 19:53] LABS: Band 1 % (5-11); Eosinophils 5 % (0-10); Lymphocytes 60 % (21-51); MDiff Complete? YES; Monocytes 2 % (0-10); Neutrophil 30 % (42-75); Platelet Morphology Comment Appears Adequate; RBC Morphology Normal; Reactive Lymphocytes 1 % (0-10)
[2019-04-13] MEDS ORDERED: Nitroglycerin 0.4 MG TAB 1 EACH ONE (20:15)
[2019-04-13] MEDS ORDERED: Potassium Chloride 20 MEQ TAB PO SCH (22:30)
--- NOTE | 2019-04-13 23:24 | HP ---
PRESENTING COMPLAINT: Left-sided chest pain. HISTORY OF PRESENT ILLNESS: Ms. Norm Mcgrath is a 58-year-old female with past medical history of hypertension and chronic tobacco use, presented with a sudden onset of left-sided chest pain since 1 day. Symptoms are creeping and nonradiating. She denies any palpitations, shortness of breath, or cough. She denies any fever or chills. She admits to a history of being told she had a mild MD 5 years ago, but she had a coronary angiogram, but with no stent placement. There is family history of premature cardiac . She states she had a stress test here done 1 year ago, but no records seen. She also had an echocardiogram done that was unremarkable. She admits to not taking her medications regularly, but was told her blood pressure was elevated 1 week ago on a visit to her regular PMD. She denies any heavy lifting. PAST MEDICAL HISTORY: Significant for hypertension. HOME MEDICATIONS: Include; 1. Lisinopril. 2. Vytorin. FAMILY HISTORY: No history of coronary artery disease. SOCIAL HISTORY: The patient smokes about a pack per day since about 20 years. No history of alcohol or illicit drug use. Residing in community with her spouse. REVIEW OF SYSTEMS: All systems review x14 were negative. PAST SURGICAL HISTORY: None. PHYSICAL EXAMINATION: CURRENT VITAL SIGNS: Blood pressure of 117/76, pulse of 69, respiratory rate of 18, and O2 sat is 95% on room air. GENERAL: Average-built middle age female, not in any distress. HEENT: Head is atraumatic and normocephalic. Pupils are equal and reactive to light. Extraocular muscle movements intact. NECK: No JVD. No carotid bruit. RESPIRATORY: Good air entry bilaterally. No crepitation. CARDIOVASCULAR: S1 and S2. Palpable and reproducible anterior chest wall tenderness, more over the third and fourth intercostal margins. ABDOMEN: Full, soft, and nontender. Bowel sounds positive. EXTREMITIES: No pedal edema. No calf tenderness. NEUROLOGIC: The patient is alert and oriented. Cranial nerves 2 through 12 grossly intact. LABORATORY DATA: WBC 8.4, hemoglobin 13, platelets 58. Sodium 140, potassium 3.4, creatinine 0.9. AST and alkaline phosphatase normal. Troponin less than 0.01. Chest x-ray shows no acute infiltrate. CT angiogram shows no evidence of pulmonary embolism. EKG showed normal sinus rhythm with no ST segment changes. IMPRESSION: 1. Atypical chest pain; rule out acute coronary syndrome. We will admit the patient to telemetry unit. We will do serial set of cardiac enzymes since poor response to nitro patch. The patient is describing pain as 7/10. We will give IV morphine now. We will start the patient on naproxen with meal, start PPI b.i.d. 2. Hypertension, uncontrolled, continue lisinopril. 3. Hypokalemia. We will replete with potassium of 10 mEq x1 now. 4. History of chronic tobacco use. Tobacco cessation discussed. We will start nicotine patch. 5. Deep vein thrombosis prophylaxis, subcutaneous Lovenox. We will consult Cardiology in a.m. If negative set of cardiac enzymes, the patient might benefit from repeat stress test as inpatient. Total time spent on evaluation of the patient, review of record, and discussion greater than 60 minutes. Job ID: [id number]
[2019-04-13 23:32] VITALS: BMI 26.6
[2019-04-13] MEDS ORDERED: Morphine 2 MG/ML SYRINGE SLOW IVP PRN (23:42)
[2019-04-13] MEDS ORDERED: Acetaminophen 325 MG TAB PO PRN (23:42)
[2019-04-13] MEDS ORDERED: Ondansetron PF 4 MG/2 ML Vial IVP PRN (23:42)
[2019-04-13 23:48] LABS: Troponin I 0.013 ng/mL (< 0.028)
[2019-04-14] MEDS: Nicotine 14 MG PATCH TD SCH (00:11)
[2019-04-14] MEDS: HYDROcodone/Acetaminophen 5/325 mg Tablet PO PRN ×3 (00:12→13:10)
[2019-04-14 02:40] LABS: Eosinophils 2 % (0-10); Hemoglobin 12.7 g/dL (12.0-16.0); Lymphocytes 56 % (21-51); MDiff Complete? YES; Mean Corpuscular HGB CONC 34.4 g/dL (32.0-36.0); Mean Corpuscular Hemoglobin 31.9 pg (27.0-31.0); Mean Corpuscular Volume 92.7 fL (78.0-98.0); Mean Platelet Volume 7.2 fL (7.4-10.4); Monocytes 3 % (0-10); Neutrophil 39 % (42-75); Platelet Count 237 thou/uL (130-400); Platelet Morphology Comment Appears Adequate; RBC Distribution Width 12.9 % (11.5-14.5); Red Blood Cell (RBC) Count 3.99 mill/uL (4.20-5.40); White Blood Cell (WBC) Count 7.6 thou/uL (4.8-10.8)
[2019-04-14 02:54] LABS: Troponin I Less than 0.010 ng/mL (< 0.028)
[2019-04-14 02:55] LABS: Anion Gap 11 mmol/L (10-20); BUN (Urea Nitrogen) 12 mg/dL (9.8-20.1); Calc. Creatinine Clearance 78 mL/min (70-130); Calcium 8.9 mg/dL (7.8-10.44); Carbon Dioxide 25 mmol/L (22-29); Chloride 110 mmol/L (98-107); Estimated GFR-MDRD 76; Glucose 104 mg/dL (70-105); Potassium 3.6 mmol/L (3.5-5.1); Sodium 142 mmol/L (136-145)
[2019-04-14] MEDS: Nitroglycerin 2% Ointment 1 INCH/1 GM Packet TOP SCH ×2 (07:31→13:11)
[2019-04-14] MEDS: Ezetimibe 10 MG TAB PO SCH (08:45)
[2019-04-14] MEDS: Lisinopril 20 MG TAB PO SCH (08:46)
[2019-04-14] MEDS: Famotidine 20 MG TAB PO SCH ×2 (08:46→20:45)
[2019-04-14] MEDS: Furosemide 20 MG TAB PO SCH (08:47)
[2019-04-14] MEDS: Cyanocobalamin (Vitamin B-12) 1,000 MCG TAB PO SCH (08:47)
[2019-04-14] MEDS: Enoxaparin Sodium 40 MG/0.4 ML SYRINGE SC SCH (08:47)
[2019-04-14] MEDS: Folic Acid 1 MG TAB PO SCH (08:47)
--- NOTE | 2019-04-14 13:59 | PDOC.HOSPP ---
- Subjective Encounter Date: 04/14/19 Encounter Time: 09:30 Subjective: Patient seen and examined for CP. CP improving. No SOB/palpitations. No new complaints. No overnight events - Objective Vital Signs & Weight: Vital Signs (12 hours) Temp Pulse Resp BP Pulse Ox 04/14/19 11:18 98.6 F 60 18 119/67 100 04/14/19 07:29 98.4 F 57 L 16 131/65 97 04/14/19 07:15 99 04/14/19 04:28 98.0 F 65 12 99/58 L 99 Weight Weight 160 lb 1.6 oz I&O: 04/13/19 04/14/19 04/15/19 06:59 06:59 06:59 Intake Total 120 Output Total 300 Balance -180 Result Diagrams: 04/14/19 02:16 04/14/19 02:16 EKG Reviewed by me: Yes (Tele SR) Hospitalist ROS - Review of Systems Respiratory: denies: cough, dry, shortness of breath, hemoptysis, SOB with excertion, pleuritic pain, sputum, wheezing, other Cardiovascular: denies: chest pain, palpitations, orthopnea, paroxysmal noc. dyspnea, edema, light headedness, other - Medication Medications: Active Medications Generic Name Dose Route Start Last Admin Trade Name Freq PRN Reason Stop Dose Admin Hydrocodone Bitart/Acetaminophen 1 tab 04/13/19 23:42 04/14/19 13:10 Underwood 5/325 PO 1 tab Q4H PRN Administration Moderate Pain (4-6) Cyanocobalamin 1,000 mcg 04/14/19 09:00 04/14/19 08:47 Vitamin B-12 PO 1,000 mcg DAILY LATRELL Administration Ezetimibe 10 mg 04/14/19 09:00 04/14/19 08:45 Zetia PO 10 mg DAILY LATRELL Administration Enoxaparin Sodium 40 mg 04/14/19 09:00 04/14/19 08:47 Lovenox SC Not Given 0900 LATRELL Famotidine 20 mg 04/14/19 09:00 04/14/19 08:46 Pepcid PO 20 mg BID LATRELL Administration Folic Acid 0.5 mg 04/14/19 09:00 04/14/19 08:47 Folvite PO Not Given DAILY LATRELL Furosemide 20 mg 04/14/19 09:00 04/14/19 08:47 Lasix PO 20 mg DAILY LATRELL Administration Lisinopril 20 mg 04/14/19 09:00 04/14/19 08:46 Zestril PO 20 mg DAILY LATRELL Administration Nicotine 14 mg 04/13/19 23:59 04/14/19 00:11 Nicoderm Patch TD 14 mg Q24HR LATRELL Administration Ondansetron HCl 4 mg 04/13/19 23:42 04/14/19 08:43 Zofran IVP 4 mg Q6H PRN Administration Nausea/Vomiting - Exam General Appearance: NAD Heart: RRR, no gallops Respiratory: CTAB, no rales Gastrointestinal: soft, non-tender, normal bowel sounds Extremities: no edema Hosp A/P - Plan DVT proph w/SCDs CP Tobacco dep HTN CAD HLD Hypokalemia PLAN: Add Aspirin Cont Lisinopril Await Cardio input Cont other meds Counselled to quit smoking
--- NOTE | 2019-04-14 18:23 | CON ---
DATE OF CONSULTATION: 04/14/2019 REASON FOR CONSULTATION: Chest pain. HISTORY OF PRESENT ILLNESS: Ms. Zhegn is a 58-year-old female, who comes to the hospital for chest pain. She has had a stabbing pain on the left side of her chest for the last 3 weeks. She has had to come in as yesterday the pain got much worse about 7/10 in intensity. Pain is pretty much constant. She was admitted, ruled out with negative troponins because of her history of continued tobacco use. Cardiology has been consulted for further evaluation. She had a normal heart catheterization back in 2011, where she had minimal disease about 10% LAD stenosis. She continues to smoke since then about a pack a day. PAST MEDICAL HISTORY: 1. Hypertension. 2. Mild coronary artery disease. OUTPATIENT MEDICATIONS: 1. Tramadol 50 mg b.i.d. p.r.n. pain. 2. Atorvastatin 40 mg at bedtime. 3. Folic acid. 4. Naproxen p.r.n. 5. Vitamin B12. 6. Lisinopril 20 mg b.i.d. 7. Gabapentin 600 mg at bedtime. 8. Lasix 20 mg a day. 9. Zetia 10 mg a day. ALLERGIES: PENICILLINS AND CODEINE. FAMILY HISTORY: The patient states that she has family members with early coronary artery disease. SOCIAL HISTORY: Smokes a pack a day. No alcohol or drugs. REVIEW OF SYSTEMS: A 12-point review of systems was done and was all negative unless stated in the history of present illness. PAST SURGICAL HISTORY: None. PHYSICAL EXAMINATION: VITAL SIGNS: Temperature 97.9, pulse 55, respiratory rate 18, saturations 98% on room air, blood pressure 96/62. GENERAL: Awake, alert, and oriented x3, in no distress. HEENT: Normocephalic and atraumatic. NECK: Supple. LUNGS: Clear. CARDIOVASCULAR: S1 and S2. No S3 or S4. No murmurs. ABDOMEN: Soft. Positive bowel sounds. EXTREMITIES: No edema. SKIN: Warm and dry. LABORATORY DATA: Laboratory work was reviewed. CBC with a white count of 7.6, hemoglobin of 12, hematocrit 37, platelet count 237. Chemistries were unremarkable except for a potassium 3.4, which is improved now at 3.6. Troponin is completely undetectable x2, otherwise unremarkable. Lipase was 25. IMAGING STUDIES: EKG was reviewed. CT of the thorax was reviewed. No pulmonary embolism. Some granular opacities the bases of the lungs. ASSESSMENT AND PLAN: 1. Chest pain, atypical. 2. Mild coronary artery disease in 2011. 3. Ongoing tobacco abuse. 4. Hypertension. PLAN: 1. We will further risk stratify with a stress as she has not had one since 2006. 2. If her stress is normal, she may be discharged to home with followup with me in 1 month, and if her chest pain continues at that point, we will plan on doing a heart catheterization. Currently, her pain is most likely musculoskeletal as it is reproducible on physical exam. Thank you for letting us to participate in the care of your patient. We will sign off. Please call with any questions. Job ID: [id number]
[2019-04-14] MEDS ORDERED: tiZANidine HCl 4 MG TAB PO SCH (21:00)
[2019-04-14] MEDS ORDERED: Gabapentin 300 MG CAP PO SCH (21:00)
[2019-04-14] MEDS ORDERED: Atorvastatin Calcium 40 MG TAB PO SCH (21:00)
[2019-04-15] MEDS: Nicotine 14 MG PATCH TD SCH (01:51)
[2019-04-15] MEDS: HYDROcodone/Acetaminophen 5/325 mg Tablet PO PRN (08:05)
[2019-04-15] MEDS ORDERED: Aspirin 81 mg Enteric Coated Tablet PO SCH (09:00)
--- NOTE | 2019-04-15 11:09 | NM ---
EXAM: CARDIAC SPECT HISTORY: Chest pain, coronary artery disease, COPD, hypertension, dyslipidemia TECHNIQUE: A myocardial perfusion scan was performed using the single isotope 1 day protocol with melvin hnetium 99m sestamibi. [10 mCi] was injected intravenously for the rest exam followed by 30 mCi for the stress study. Pharmacologic stress with Lexiscan was monitored and interpreted by CLEMENTE Anderson, FINDINGS: Homogeneous tracer distribution is seen in the myocardial segments on stress and rest image s without fixed or reversible defects. Gated SPECT LVEF: 72% Wall motion exam: Normal IMPRESSION: Normal myocardial perfusion scan
[2019-04-15] MEDS ORDERED: Regadenoson 0.4 MG/5 ML SYRINGE ONE (12:00)
[2019-04-15] MEDS: Cyanocobalamin (Vitamin B-12) 1,000 MCG TAB PO SCH (12:01)
[2019-04-15] MEDS: Lisinopril 20 MG TAB PO SCH (12:02)
[2019-04-15] MEDS: Famotidine 20 MG TAB PO SCH (12:04)
[2019-04-15] MEDS: Ezetimibe 10 MG TAB PO SCH (12:05)
[2019-04-15] MEDS: Furosemide 20 MG TAB PO SCH (12:05)
[2019-04-15] MEDS: Folic Acid 1 MG TAB PO SCH (12:05)
[2019-04-15 12:08] VITALS: BP 125/75
[2019-04-15] MEDS: Enoxaparin Sodium 40 MG/0.4 ML SYRINGE SC SCH (12:08)
[2019-04-15 12:20] VITALS: TEMP 97.5
[2019-04-15] MEDS ORDERED: Ketorolac Tromethamine 30 MG/ML VIAL IVP SCH (12:45)
--- NOTE | 2019-04-15 18:52 | DIS ---
DATE OF ADMISSION: 04/13/2019 DATE OF DISCHARGE: 04/15/2019 DISCHARGE DISPOSITION: Home. FOLLOWUP: 1. Follow up with primary care physician, Dr. Lyn in 1 week. 2. Follow up with Cardiology, Dr. Hope in 1 month. ALLERGIES: THE PATIENT IS ALLERGIC TO CODEINE AND PENICILLIN. DISCHARGE MEDICATIONS: 1. Aspirin 81 mg daily. 2. Nicotine patch 14 mg patch daily for 1 week. 3. Protonix 40 mg daily. All other home medications were left unchanged. The patient was seen and examined on the day of discharge. Denies any new complaints. BRIEF HOSPITAL COURSE: The patient is a 58-year-old female with mild coronary artery disease and hypertension in the past, presented to the emergency room with chest discomfort. Please refer to the history and physical for further details. The patient was admitted to the hospital with a diagnosis of chest discomfort, rule out acute coronary syndrome. Serial troponins were negative. The patient was evaluated by Cardiology, Dr. Hope. Dr. Hope recommended a stress test, which was done today. Stress test was negative for reversible ischemia. Ejection fraction on the stress test was 72% without any wall motion abnormality. She has been cleared by Cardiology for discharge. FINAL DIAGNOSES: 1. Atypical chest pain. 2. Mild coronary artery disease in 2011. 3. Ongoing tobacco abuse. The patient was counseled. 4. Hypertension. 5. Hyperlipidemia. 6. Hypokalemia with potassium of 3.4, replaced. 7. Chronic kidney disease stage 2. DIAGNOSTIC TESTS: CT angiogram of the chest was negative for pulmonary embolism. It showed nonspecific minimal ground-glass opacity changes in the mid and the lower lung zones. PLAN: Plan of care was discussed with the patient in detail. She stated understanding. Tobacco cessation was emphasized. Job ID: [id number]
== END 2019-04-15 13:23 | disposition home or self-care (01) ==
LOC: ERS 17:44 → 2SW 22:53
PROVIDERS: ADMIT Internal Medicine; ATTEND Internal Medicine
DX: R07.89 Other chest pain (principal); I25.10 Atherosclerotic heart disease of native coronary artery without angina pectoris; I12.9 Hypertensive chronic kidney disease with stage 1 through stage 4 chronic kidney disease, or unspecified chronic kidney disease; N18.2 Chronic kidney disease, stage 2 (mild); E78.5 Hyperlipidemia, unspecified; E87.6 Hypokalemia; F17.210 Nicotine dependence, cigarettes, uncomplicated; F41.9 Anxiety disorder, unspecified; F32.9 Major depressive disorder, single episode, unspecified; Z79.82 Long term (current) use of aspirin; Z79.899 Other long term (current) drug therapy; Z88.0 Allergy status to penicillin; Z88.5 Allergy status to narcotic agent
CPT/HCPCS: 36415; 71045; 71275; 78452; 80048; 80053; 83690; 83735; 84484; 85007; 85025; 85027; 93005; 93017; 94760; 96374; 96376; A9500; G0378; J1885; J2405; J2785; Q9967

== ENCOUNTER 2019-08-10 07:22 | Emergency (ER) | payer OTHER | END 2019-08-10 09:04 | disposition left against medical advice (07) | LOC: ERS 07:22 | DX: Z53.21 Procedure and treatment not carried out due to patient leaving prior to being seen by health care provider (principal) ==

== ENCOUNTER 2019-11-23 08:39 | Outpatient (CLI) | payer OTHER ==
--- NOTE | 2019-11-23 10:04 | CT ---
CT OF THE ABDOMEN AND PELVIS WITH IV CONTRAST INDICATION: Epigastric abdominal pain and vomiting in a 58-year-old female COMPARISON: CTA of the chest dated April 13, [address] the abdomen and pelvis dated January 02 FINDINGS: ABDOMEN: Lung bases: The scattered areas of centrilobular emphysema are stable. There is subsegmental volume l oss within the right lower lobe. Liver: There is a very tiny cyst within segment 7 of the right hepatic lobe. Gallbladder: Normal appearing. Pancreas: Normal. Adrenal glands: Normal. Spleen: Normal. Kidneys and ureters: There is slight prominence of the proximal right renal collecting system which i s stable. No nate hydronephrosis is evident. No focal renal lesion is evident. Vasculature: There are moderate vascular calcifications seen involving the visualized vasculature. Lymph nodes:No lymphadenopathy. Free fluid in abdomen:No free fluid is evident. PELVIS: Small and large bowel: Normal Appendix:Normal Bladder: Normal. Rectal and perirectal soft tissues:Normal. Reproductive structures: Normal. Free fluid in pelvis: No free fluid is evident. Lymphadenopathy pelvis: No lymphadenopathy is evident. Osseous structures: There is a left lateral interbody fusion involving L3-L5. There is levoscoliosis of the lumbar spine. No acute fracture or subluxation demonstrated. There is scattered degenerative and osteoarthritic changes. Soft tissues:Normal. IMPRESSION: 1. No acute abnormality.
== END 2019-11-23 08:40 | disposition home or self-care (01) ==
LOC: SCSCT 08:39
PROVIDERS: ATTEND Internal Medicine Gastroenterology
DX: R10.13 Epigastric pain (principal); R11.2 Nausea with vomiting, unspecified
CPT/HCPCS: 74177

== ENCOUNTER 2021-08-03 19:01 | Emergency (ER) | payer OTHER ==
[2021-08-03 19:31] LABS: #Basophils 0.1 thou/uL (0.0-0.2); #Eosinphils 0.5 thou/uL (0.0-0.7); #Lymphocytes 4.7 thou/uL (1.20-3.40); #Monocytes 0.5 thou/uL (0.11-0.59); #Neutrophils 4.3 thou/uL (1.40-6.50); %Basophils 0.9 % (0.0-1.0); %Eosinophils 4.5 % (0.0-10.0); %Lymphocytes 46.4 % (21.0-51.0); %Monocytes 5.4 % (0.0-10.0); %Neutrophils 42.8 % (42.0-75.0); Hemoglobin 14.8 g/dL (12.0-16.0); Mean Corpuscular HGB CONC 33.2 g/dL (32.0-36.0); Mean Corpuscular Hemoglobin 31.6 pg (27.0-31.0); Mean Corpuscular Volume 95.4 fL (78.0-98.0); Mean Platelet Volume 6.9 fL (7.4-10.4); Platelet Count 263 thou/uL (130-400); Red Blood Cell (RBC) Count 4.66 mill/uL (4.20-5.40)
[2021-08-03 19:55] LABS: ALT (SGPT) 10 U/L (8-55); AST (SGOT) 13 U/L (5-34); Albumin 3.9 g/dL (3.5-5.0); Alkaline Phosphatase 96 U/L (40-110); Anion Gap 13 mmol/L (10-20); BUN (Urea Nitrogen) 14 mg/dL (9.8-20.1); Bilirubin, Total Less than 0.2 mg/dL (0.2-1.2); Calc. Creatinine Clearance 0 mL/min (70-130); Calcium 9.1 mg/dL (7.8-10.44); Carbon Dioxide 24 mmol/L (22-29); Chloride 110 mmol/L (98-107); Globulin 3.3 g/dL (2.4-3.5); Glucose 79 mg/dL (70-105); Potassium 3.8 mmol/L (3.5-5.1); Protein, Total 7.2 g/dL (6.0-8.3); Sodium 143 mmol/L (136-145)
[2021-08-03] MEDS ORDERED: Ketorolac Tromethamine 30 MG/ML VIAL ONE (20:26)
[2021-08-03] MEDS ORDERED: Morphine 4 MG/ML VIAL ONE (21:46)
== END 2021-08-03 23:20 | disposition home or self-care (01) ==
LOC: ERS 19:01
DX: R07.89 Other chest pain (principal); I25.2 Old myocardial infarction; E78.5 Hyperlipidemia, unspecified; I10 Essential (primary) hypertension; Z86.73 Personal history of transient ischemic attack (TIA), and cerebral infarction without residual deficits; F17.210 Nicotine dependence, cigarettes, uncomplicated
CPT/HCPCS: 36415; 71045; 80053; 84484; 85025; 93005; 96374; 96375; J1885; J2270

== ENCOUNTER 2022-03-20 13:47 | Emergency (ER) | payer OTHER | END 2022-03-20 17:57 | disposition left against medical advice (07) | LOC: ERS 13:47 | DX: M79.605 Pain in left leg (principal); M79.604 Pain in right leg; I10 Essential (primary) hypertension; E78.5 Hyperlipidemia, unspecified; F17.210 Nicotine dependence, cigarettes, uncomplicated; Z79.899 Other long term (current) drug therapy; Z79.82 Long term (current) use of aspirin ==

== ENCOUNTER 2022-12-04 09:07 | Outpatient (CLI) | payer OTHER | END 2022-12-04 09:08 | disposition home or self-care (01) | LOC: SCSMRI 09:07 | PROVIDERS: ATTEND Specialist | DX: M48.062 Spinal stenosis, lumbar region with neurogenic claudication (principal); M47.816 Spondylosis without myelopathy or radiculopathy, lumbar region; M48.07 Spinal stenosis, lumbosacral region; Z98.890 Other specified postprocedural states | CPT/HCPCS: 72148 ==

== ENCOUNTER 2023-01-07 14:09 | Emergency (ER) | payer OTHER | END 2023-01-07 16:27 | disposition home or self-care (01) | LOC: ERS 14:09 | DX: M79.604 Pain in right leg (principal); E78.5 Hyperlipidemia, unspecified; I10 Essential (primary) hypertension; F17.210 Nicotine dependence, cigarettes, uncomplicated; Z79.899 Other long term (current) drug therapy; Z79.82 Long term (current) use of aspirin | CPT/HCPCS: 93923 ==

== ENCOUNTER 2023-03-19 08:29 | Observation (INO) | payer OTHER ==
[2023-03-19 09:03] LABS: #Eosinphils 0.2 thou/uL (0.0-0.7); #Monocytes 0.5 thou/uL (0.11-0.59); #Neutrophils 3.1 thou/uL (1.40-6.50); %Basophils 0.5 % (0.0-1.0); %Eosinophils 3.5 % (0.0-10.0); %Lymphocytes 40.7 % (21.0-51.0); %Neutrophils 47.1 % (42.0-75.0); Hematocrit 37.6 % (36.0-47.0); Hemoglobin 12.7 g/dL (12.0-16.0); Mean Corpuscular HGB CONC 33.8 g/dL (32.0-36.0); Mean Corpuscular Hemoglobin 30.9 pg (27.0-31.0); Mean Corpuscular Volume 91.5 fl (78.0-98.0); Mean Platelet Volume 9.5 fL (7.4-10.4); Platelet Count 252 10x3/uL (130-400); RBC Distribution Width 13.2 % (11.5-14.5); Red Blood Cell (RBC) Count 4.11 mill/uL (4.20-5.40); White Blood Cell (WBC) Count 6.5 10x3/uL (4.8-10.8)
[2023-03-19] MEDS ORDERED: Iopamidol-370 76% 500 ML MDV (1 ML CHARGE) ONE (09:03)
[2023-03-19] MEDS ORDERED: Nitroglycerin 0.4 MG TAB 1 EACH ONE (09:20)
[2023-03-19] MEDS ORDERED: Aspirin Chewable 81 MG TAB ONE (09:20)
[2023-03-19 09:28] LABS: ALT (SGPT) 14 U/L (8-55); AST (SGOT) 14 U/L (5-34); Albumin 4.4 g/dL (3.5-5.0); Alkaline Phosphatase 82 U/L (40-110); Anion Gap 14 mmol/L (10-20); BUN (Urea Nitrogen) 13 mg/dL (9.8-20.1); Bilirubin, Total 0.2 mg/dL (0.2-1.2); Calc. Creatinine Clearance 0 mL/min (70-130); Calcium 9.8 mg/dL (7.8-10.44); Carbon Dioxide 26 mmol/L (22-29); Chloride 105 mmol/L (98-107); Estimated GFR 59; Globulin 2.9 g/dL (2.4-3.5); Glucose 61 mg/dL (70-105); Lipase 20 U/L (8-78); Potassium 3.6 mmol/L (3.5-5.1); Protein, Total 7.3 g/dL (6.0-8.3); Sodium 141 mmol/L (136-145)
[2023-03-19 09:31] LABS: Troponin I Less than 0.010 ng/mL (< 0.028)
[2023-03-19] MEDS ORDERED: Nitroglycerin 2% Ointment 1 INCH/1 GM Packet ONE (10:41)
[2023-03-19 11:49] LABS: Troponin I Less than 0.010 ng/mL (< 0.028)
[2023-03-19 14:40] LABS: Troponin I 0.016 ng/mL (< 0.028)
[2023-03-19] MEDS ORDERED: HYDROcodone/Acetaminophen 10/325 mg Tablet ONE ×2 (17:51→17:54)
[2023-03-19] MEDS: HYDROcodone/Acetaminophen 10/325 mg Tablet PO PRN ×2 (17:55→22:29)
[2023-03-19 20:57] VITALS: BMI 27.5
[2023-03-20 04:43] LABS: Cardiac Risk 3.5 (Less than 4.5)
[2023-03-20] MEDS ORDERED: Aspirin Chewable 81 MG TAB PO SCH (09:00)
[2023-03-20] MEDS ORDERED: FLU VACC QS2023-24(6MOS UP)/PF 60 MCG/0.5 ML SYRINGE IM ONE (09:00)
[2023-03-20] MEDS: HYDROcodone/Acetaminophen 10/325 mg Tablet PO PRN (11:33)
[2023-03-20 11:42] VITALS: BP 141/68; TEMP 97.9
[2023-03-20] MEDS ORDERED: Regadenoson 0.4 MG/5 ML SYRINGE ONE (13:14)
== END 2023-03-20 14:50 | disposition home or self-care (01) ==
LOC: ERS 08:29 → ERHOLD 11:03 → 2SW 20:00
PROVIDERS: ADMIT Internal Medicine; ATTEND Internal Medicine
DX: R07.9 Chest pain, unspecified (principal); I11.0 Hypertensive heart disease with heart failure; I50.30 Unspecified diastolic (congestive) heart failure; E78.5 Hyperlipidemia, unspecified; I25.2 Old myocardial infarction; I63.9 Cerebral infarction, unspecified; G62.9 Polyneuropathy, unspecified; M79.7 Fibromyalgia; G89.29 Other chronic pain; M54.40 Lumbago with sciatica, unspecified side; F32.A Depression, unspecified; Z87.891 Personal history of nicotine dependence; Z88.0 Allergy status to penicillin; Z88.5 Allergy status to narcotic agent; Z79.82 Long term (current) use of aspirin; Z79.899 Other long term (current) drug therapy; Z98.890 Other specified postprocedural states
CPT/HCPCS: 36415; 36416; 71046; 71275; 74174; 78452; 80053; 80061; 83690; 84484; 85025; 85379; 93005; 93017; 93306; 94760; A9500; A9502; G0378; J2785; Q9967

== ENCOUNTER 2023-04-15 14:00 | Observation (INO) | payer OTHER ==
[2023-04-26 15:20] VITALS: BMI 26.6
[2023-04-29] MEDS ORDERED: PROPOFOL 20 ML ONE (12:59)
[2023-04-29] MEDS ORDERED: fentaNYL PF 100 MCG/2 ML SYRINGE ONE ×2 (12:59→14:30)
[2023-04-29] MEDS ORDERED: Dexamethasone 20 MG/5 ML VIAL ONE ×2 (13:00→13:42)
[2023-04-29] MEDS ORDERED: Rocuronium Bromide 10 MG/ML (10ML VIAL) ONE ×2 (13:00→13:42)
[2023-04-29] MEDS ORDERED: Ondansetron PF 4 MG/2 ML Vial ONE ×2 (13:00→13:42)
[2023-04-29] MEDS ORDERED: Vancomycin 1 GM VIAL ONE (13:09)
[2023-04-29] MEDS ORDERED: Sodium Chloride 0.9% 100 ML ONE (13:20)
[2023-04-29] MEDS ORDERED: CEFAZOLIN 2 GM VIAL ONE (13:20)
[2023-04-29] MEDS ORDERED: LevoFLOXacin D5W 500 mg (100 mL) BAG ONE (13:28)
[2023-04-29] MEDS ORDERED: Clindamycin/D5W 900 mg/50 ml Premix Bag ONE (13:28)
[2023-04-29] MEDS ORDERED: PHENYLEPHRINE-NS 100 MCG/ML 10 ML SYRINGE ONE ×2 (13:42→14:30)
[2023-04-29] MEDS ORDERED: PROPOFOL 200 MG/20 ML VIAL ONE (13:42)
[2023-04-29] MEDS ORDERED: HYDROmorphone 2 MG/ML VIAL ONE (14:30)
[2023-04-29] MEDS ORDERED: SUGAMMADEX SODIUM 200 MG/2 ML VIAL ONE (14:33)
[2023-04-29] MEDS ORDERED: HYDROmorphone 2 MG/ML VIAL SLOW IVP PRN (15:13)
[2023-04-29] MEDS ORDERED: Promethazine HCl 25 MG/ML VIAL IM PRN (15:13)
[2023-04-29] MEDS ORDERED: Ondansetron HCl/PF 4 MG/2 ML Vial IVP PRN (15:13)
[2023-04-29] MEDS ORDERED: Mag-Al 1200 mg/1200 mg/30 ML UDCUP PO PRN (15:17)
[2023-04-29] MEDS ORDERED: Acetaminophen 325 MG TAB PO PRN (15:17)
[2023-04-29] MEDS ORDERED: Milk Of Magnesia 30 ML UDCUP PO PRN (15:17)
[2023-04-29] MEDS ORDERED: Morphine 2 MG/ML VIAL SLOW IVP PRN (15:17)
[2023-04-29] MEDS ORDERED: HYDROcodone/Acetaminophen 10/325 mg Tablet PO PRN (15:17)
[2023-04-29] MEDS ORDERED: Ondansetron PF 4 MG/2 ML Vial IVP PRN (15:17)
[2023-04-29] MEDS ORDERED: traMADol HCl 50 MG TAB PO PRN (15:17)
[2023-04-29] MEDS ORDERED: Promethazine 25 MG TAB PO PRN (15:17)
[2023-04-29] MEDS ORDERED: diphenhydrAMINE 50 MG/ML VIAL IVP PRN (15:17)
[2023-04-29] MEDS ORDERED: fentaNYL 50 mcg/mL 1 mL Vial ONE ×4 (15:45→17:10)
[2023-04-29] MEDS: Sodium Chloride 0.9% 1,000 ML IV SCH (18:05)
[2023-04-29] MEDS: HYDROcodone/Acetaminophen 10/325 mg Tablet PO PRN (18:25)
[2023-04-29] MEDS: Clindamycin/D5W 900 MG in Premix 1 BAG IVPB SCH (21:01)
[2023-04-29] MEDS: tiZANidine HCl 4 MG TAB PO SCH (21:06)
[2023-04-29] MEDS: Gabapentin 300 MG CAP PO SCH (21:06)
[2023-04-29] MEDS: Methocarbamol 500 MG TAB PO SCH (21:06)
[2023-04-30] MEDS: Furosemide 20 MG TAB PO SCH (08:28)
[2023-04-30] MEDS: Lisinopril 20 MG TAB PO SCH (08:28)
[2023-04-30 09:35] VITALS: BP 109/62; TEMP 97.9
== END 2023-04-30 10:40 | disposition home or self-care (01) ==
LOC: SURG A 04-29 08:22 → INTOOBSV 04-29 08:22 → MSONC 04-29 17:54
PROVIDERS: ADMIT Neurological Surgery; ATTEND Neurological Surgery
PROC: 0QJY0ZZ Inspection of Lower Bone, Open Approach (ICD-10-PCS; principal; 2023-04-29)
PROC: 0SG3071 Fusion of Lumbosacral Joint with Autologous Tissue Substitute, Posterior Approach, Posterior Column, Open Approach (ICD-10-PCS; 2023-04-29)
DX: Z45.89 Encounter for adjustment and management of other implanted devices (principal); M48.061 Spinal stenosis, lumbar region without neurogenic claudication; M47.817 Spondylosis without myelopathy or radiculopathy, lumbosacral region; Z88.0 Allergy status to penicillin
CPT/HCPCS: C1713; C1889; J1100; J1170; J1956; J2405; J2704; J3010; J3370; J3490; J7050

== ENCOUNTER 2023-04-26 14:49 | Outpatient (CLI) | payer OTHER ==
[2023-04-26 16:51] LABS: Hematocrit 37.1 % (34.9-44.5); Mean Corpuscular HGB CONC 32.3 g/dL (32.0-36.0); Mean Corpuscular Hemoglobin 29.5 pg (27.0-33.0); Mean Corpuscular Volume 91.2 fl (81.6-98.3); Platelet Count 324 10x3/uL (150-450); RBC Distribution Width 14.1 % (11.5-14.5); Red Blood Cell (RBC) Count 4.07 10x6/uL (3.90-5.03); White Blood Cell (WBC) Count 6.6 10x3/uL (3.5-10.5)
[2023-04-26 17:05] LABS: Anion Gap 13 mmol/L (10-20); BUN (Urea Nitrogen) 18 mg/dL (9.8-20.1); Calc. Creatinine Clearance 0 mL/min (70-130); Carbon Dioxide 24 mmol/L (22-29); Chloride 109 mmol/L (98-107); Estimated GFR 61; Glucose 92 mg/dL (70-105); Sodium 142 mmol/L (136-145)
== END 2023-04-26 14:50 | disposition home or self-care (01) ==
LOC: LABBT 14:49
PROVIDERS: ATTEND Neurological Surgery
DX: Z01.818 Encounter for other preprocedural examination (principal); M54.16 Radiculopathy, lumbar region
CPT/HCPCS: 80048; 85027; 93005; 93010

== ENCOUNTER 2023-05-23 11:00 | Emergency (ER) | payer OTHER ==
[~2023-05-23 11:00] MED LIST changes: -Iopamidol-370 76% 500 ML 1 ML ONE; +Iopamidol-370 76% 500 ML MDV (1 ML CHARGE) ONE
[2023-05-23 11:47] LABS: Bacteria/HPF None Seen HPF (None Seen); Bilirubin Negative (Negative); Blood, Urine Negative (Negative); CAUTI Indications for Culture Dysuria,urgency,freq; Clarity Clear (Clear); Glucose, Urine (Dipstick) Normal (Negative); Ketone, Urine Negative (Negative); Leukocyte Negative Leu/uL (Negative); Nitrite Negative (Negative); Protein, Urine (Dipstick) Negative (Neg-Trace); RBC/HPF None Seen HPF (0-3); Specific Gravity, Urine 1.004 (1.002-1.036); Squamous Epithelial 0-3 HPF (0-3); Urobilinogen Normal mg/dL (Less than 2); WBC/HPF 0-3 HPF (0-3)
[2023-05-23 11:48] LABS: #Eosinphils 0.5 thou/uL (0.0-0.7); #Monocytes 0.3 thou/uL (0.11-0.59); %Basophils 0.5 % (0.0-1.0); %Lymphocytes 42.7 % (21.0-51.0); %Monocytes 3.8 % (0.0-10.0); %Neutrophils 45.8 % (42.0-75.0); Hemoglobin 13.3 g/dL (12.0-16.0); Mean Corpuscular HGB CONC 33.3 g/dL (32.0-36.0); Mean Corpuscular Hemoglobin 31.2 pg (27.0-31.0); Mean Corpuscular Volume 93.9 fl (78.0-98.0); Mean Platelet Volume 9.5 fL (7.4-10.4); Platelet Count 334 10x3/uL (130-400); RBC Distribution Width 13.8 % (11.5-14.5); Red Blood Cell (RBC) Count 4.26 mill/uL (4.20-5.40); White Blood Cell (WBC) Count 6.6 10x3/uL (4.8-10.8)
[2023-05-23 11:53] LABS: Urine Culture Reflex No No
[2023-05-23] MEDS ORDERED: Ondansetron PF 4 MG/2 ML Vial ONE (11:57)
[2023-05-23] MEDS ORDERED: Nitroglycerin 0.4 MG TAB (25 Tab Bottle) ONE (11:57)
[2023-05-23 12:09] LABS: Troponin I Less than 0.010 ng/mL (< 0.028)
[2023-05-23 12:14] LABS: ALT (SGPT) 7 U/L (8-55); AST (SGOT) 15 U/L (5-34); Albumin 4.4 g/dL (3.5-5.0); Alkaline Phosphatase 110 U/L (40-110); Anion Gap 15 mmol/L (10-20); BUN (Urea Nitrogen) 11 mg/dL (9.8-20.1); Bilirubin, Total 0.3 mg/dL (0.2-1.2); Calc. Creatinine Clearance 0 mL/min (70-130); Calcium 9.7 mg/dL (7.8-10.44); Carbon Dioxide 25 mmol/L (22-29); Chloride 105 mmol/L (98-107); Estimated GFR 68; Glucose 90 mg/dL (70-105); Lipase 147 U/L (8-78); Potassium 3.8 mmol/L (3.5-5.1); Protein, Total 8.4 g/dL (6.0-8.3); Sodium 141 mmol/L (136-145)
[2023-05-23 12:54] LABS: SARS-CoV-2 NAA Rapid Test Not Detected (NotDetected)
== END 2023-05-23 14:02 | disposition home or self-care (01) ==
LOC: ERS 11:00
DX: R07.9 Chest pain, unspecified (principal); E78.5 Hyperlipidemia, unspecified; I10 Essential (primary) hypertension; F17.210 Nicotine dependence, cigarettes, uncomplicated; Z79.899 Other long term (current) drug therapy; Z79.82 Long term (current) use of aspirin
CPT/HCPCS: 71045; 74177; 80053; 81001; 83690; 83880; 84484; 85025; 93005; 96374; J2405